=== PATIENT | male | born 1935 | race Caucasian/White ===

== ENCOUNTER 2018-11-15 17:44 | Inpatient (IN) | payer OTHER ==
[~2018-11-15] VITALS: Ht 177.8 cm; Wt 91.5 kg
--- NOTE | 2018-11-15 18:08 | NUR ---
PT TO ROOM FROM [facility]OBBY
[2018-11-15] MEDS ORDERED: ONDANSETRON 2MG/ML, 2ML ONE ×2 (18:37→21:03)
[2018-11-15] MEDS ORDERED: MORPHINE SULFATE 4 MG/ML, 1ML ONE ×2 (18:38→19:23)
[2018-11-15 18:58] LABS: BASOPHILS # (AUTO) 0.04 x10^3/uL (0-0.1); BASOPHILS % (AUTO) 0 % (0-1); EOSINOPHILS # (AUTO) 0.09 x10^3/uL (0-0.4); EOSINOPHILS % (AUTO) 1 % (1-7); LYMPHOCYTES % (AUTO) 16 % (22-44); MD NO; MEAN CORPUSCULAR HEMOGLOBIN 29.6 pg (27.5-34.5); MEAN CORPUSCULAR VOLUME 89.6 fL (81-97); MEAN PLATELET VOLUME 7.2 fL (7.4-10.4); MONOCYTES # (AUTO) 0.29 x10^3/uL (0.2-0.8); MONOCYTES % (AUTO) 4 % (2-9); NEUTROPHILS # (AUTO) 6.66 x10^3/uL (1.8-6.8); NEUTROPHILS % (AUTO) 80 % (42-75); PLATELET COUNT 185 x10^3/uL (130-400); RED BLOOD COUNT 5.19 x10^6/uL (4.38-5.82); RED CELL DISTRIBUTION WIDTH 13.3 % (9.4-14.8)
[2018-11-15] MEDS ORDERED: MORPHINE SULFATE 4 MG/ML, 1ML IVPush ONE ×2 (19:00→20:00)
[2018-11-15] MEDS ORDERED: SODIUM CHLORIDE FLUSH 10ML SYR IVF ONE (19:00)
[2018-11-15] MEDS ORDERED: ONDANSETRON 2MG/ML, 2ML IVPush ONE (19:00)
[2018-11-15 19:11] LABS: ALANINE AMINOTRANSFERASE 26 U/L (12-78); ALBUMIN 4.3 g/dL (3.4-5.0); ANION GAP 8 mmol/L (5-15); CHLORIDE 106 mmol/L (98-107); CREATININE 1.34 mg/dL (0.7-1.3)
[2018-11-15 19:13] LABS: ALKALINE PHOSPHATASE 105 U/L (45-117); BILIRUBIN,TOTAL 0.5 mg/dL (0.2-1.0); TOTAL PROTEIN 7.5 g/dL (6.4-8.2)
[2018-11-15] MEDS ORDERED: EPINEPHRINE 1 MG/ML, 1ML ONE (19:51)
[2018-11-15] MEDS ORDERED: BUPIVACAINE/PF 0.5% ONE (19:51)
[2018-11-15] MEDS ORDERED: FENTANYL PF 250 MCG/5ML ONE (20:19)
[2018-11-15] MEDS ORDERED: ONDANSETRON 2MG/ML, 2ML IV PRN ×2 (20:30→23:45)
[2018-11-15] MEDS ORDERED: PROMETHAZINE 25 MG SUPP PR PRN (20:30)
[2018-11-15] MEDS ORDERED: ONDANSETRON ODT 8 MG PO PRN (20:30)
[2018-11-15] MEDS ORDERED: HYDROmorphone 2 MG/ML, 1ML IVPush PRN ×2 (20:30→21:00)
[2018-11-15] MEDS ORDERED: ALBUTEROL/IPRATROPIUM 2.5MG/0.5MG, 3 ML NPPB PRN (20:30)
[2018-11-15] MEDS ORDERED: PROMETHAZINE 25 MG/ML, 1ML IV PRN (20:30)
[2018-11-15] MEDS ORDERED: ACETAMINOPHEN 325 MG TABLET PO PRN ×2 (20:30→21:00)
[2018-11-15] MEDS ORDERED: hydrALAzine 20 MG/ML, 1ML IV PRN (20:30)
[2018-11-15] MEDS ORDERED: LABETALOL 5MG/ML, 20ML IV PRN (20:30)
[2018-11-15] MEDS ORDERED: OXYcodone 5 MG/5 ML ORAL.SOL UDC PO PRN (20:30)
[2018-11-15] MEDS ORDERED: CEFTRIAXONE PMX 2GM/50ML 50 ML IV SCH (21:00)
[2018-11-15] MEDS ORDERED: BISACODYL 10 MG SUPP PR PRN (21:00)
[2018-11-15] MEDS ORDERED: OXYcodone/APAP 5/325MG TABLET PO PRN (21:00)
[2018-11-15] MEDS ORDERED: LACTATED RINGERS 1,000 ML IV SCH (21:00)
[2018-11-15] MEDS ORDERED: POLYETHYLENE GLYCOL 17 GM PACKET PO PRN (21:00)
[2018-11-15] MEDS ORDERED: ENALAPRILAT 1.25 MG/ML, 2ML IVPush PRN (21:00)
[2018-11-15] MEDS ORDERED: ONDANSETRON 2MG/ML, 2ML IVPush PRN (21:00)
[2018-11-15] MEDS ORDERED: NEOSTIGMINE 1 MG/ML, 10ML ONE (21:03)
[2018-11-15] MEDS ORDERED: PROPOFOL 10 MG/ML, 20ML ONE (21:03)
[2018-11-15] MEDS ORDERED: CEFAZOLIN 1,000 MG ONE (21:03)
[2018-11-15] MEDS ORDERED: SUGAMMADEX 200 MG/2 ML IVPush ONE (21:03)
[2018-11-15] MEDS ORDERED: ROCURONIUM 10MG/ML,5ML ONE (21:03)
[2018-11-15] MEDS ORDERED: SUCCINYLCHOLINE 20 MG/ML, 10ML ONE (21:03)
[2018-11-15] MEDS ORDERED: GLYCOPYRROLATE 0.2MG/1ML, 5ML ONE (21:03)
[2018-11-15] MEDS ORDERED: DEXAMETHASONE 4 MG/ML, 1ML ONE (21:03)
[2018-11-15] MEDS ORDERED: FENTANYL PF 100 MCG/2ML ONE (21:37)
[2018-11-15] MEDS ORDERED: hydrALAzine 20 MG/ML, 1ML ONE (21:37)
[2018-11-15] MEDS ORDERED: OXYcodone 5 MG/5 ML ORAL.SOL UDC ONE (21:37)
[2018-11-15] MEDS ORDERED: ALBUTEROL SULFATE 2.5 MG/3 ML ONE (21:43)
[2018-11-15] MEDS: FENTANYL PF 100 MCG/2ML IV PRN ×2 (21:45→21:50)
[2018-11-15 22:53] VITALS: BP 138/78
[2018-11-15] MEDS ORDERED: SODIUM CHLORIDE FLUSH 10ML SYR IVF SCH (23:30)
[2018-11-15] MEDS ORDERED: HYDROcodone/APAP 5/325 TABLET PO PRN (23:45)
[2018-11-15] MEDS ORDERED: CEFOTETAN PMX 1GM/50ML 50 ML IVPB SCH (23:45)
[2018-11-15] MEDS ORDERED: SODIUM CHLORIDE 0.9% 1,000 ML IV SCH (23:45)
[2018-11-15] MEDS ORDERED: morphine SULFATE 10 MG/ML, 1ML IV PRN (23:45)
[2018-11-16 00:32] VITALS: BP 114/67
[2018-11-16 04:22] VITALS: BP 126/74
[2018-11-16 04:51] LABS: ANION GAP 5 mmol/L (5-15); CALCIUM 8.6 mg/dL (8.5-10.1); CHLORIDE 108 mmol/L (98-107)
[2018-11-16 04:52] LABS: CREATININE 1.33 mg/dL (0.7-1.3)
[2018-11-16 06:19] LABS: BASOPHILS # (AUTO) 0.02 x10^3/uL (0-0.1); BASOPHILS % (AUTO) 0 % (0-1); EOSINOPHILS % (AUTO) 0 % (1-7); LYMPHOCYTES % (AUTO) 8 % (22-44); MD NO; MEAN CORPUSCULAR HEMOGLOBIN 29.4 pg (27.5-34.5); MEAN CORPUSCULAR HGB CONC 32.8 g/dL (33.2-36.2); MEAN CORPUSCULAR VOLUME 89.4 fL (81-97); MEAN PLATELET VOLUME 7.7 fL (7.4-10.4); MONOCYTES # (AUTO) 0.12 x10^3/uL (0.2-0.8); MONOCYTES % (AUTO) 1 % (2-9); NEUTROPHILS # (AUTO) 8.39 x10^3/uL (1.8-6.8); NEUTROPHILS % (AUTO) 91 % (42-75); PLATELET COUNT 166 x10^3/uL (130-400); RED BLOOD COUNT 4.64 x10^6/uL (4.38-5.82); RED CELL DISTRIBUTION WIDTH 13.5 % (9.4-14.8)
[2018-11-16 07:18] VITALS: BP 132/76
[2018-11-16] MEDS ORDERED: SENNA/DOCUSATE TABLET PO SCH (09:00)
[2018-11-16] MEDS ORDERED: DOCU-131 PO (10:28)
[2018-11-16] MEDS ORDERED: ACET650S21 PO (10:28)
== END 2018-11-16 11:55 | disposition home or self-care (01) | DRG 418 ==
LOC: ED 19:44 → EDIP 19:53 → OBSVTOIN 19:53 → 4NOR 22:45 → DCLOUNGE 11-16 11:40
PROVIDERS: ADMIT Family Medicine; ATTEND Family Medicine
PROC: 0FT44ZZ Resection of Gallbladder, Percutaneous Endoscopic Approach (ICD-10-PCS; principal; 2018-11-15 20:15)
DX: K80.12 Calculus of gallbladder with acute and chronic cholecystitis without obstruction (principal); N17.9 Acute kidney failure, unspecified; E78.00 Pure hypercholesterolemia, unspecified; F17.210 Nicotine dependence, cigarettes, uncomplicated; E78.5 Hyperlipidemia, unspecified; Z85.820 Personal history of malignant melanoma of skin
CPT/HCPCS: 36415; 76700; 80048; 80053; 83605; 83690; 85025; 88304; 93005; 96374; 96375; 99285; G0378; J0171; J0690; J1100; J2405; J2704; J2710; J3010; J0330; J2270; J3490

== ENCOUNTER → 2020-03-29 | Outpatient (CLI) | payer MEDICARE ==
[~2020-03-29] MED LIST: ACET650S21 PO; DOCU-131 PO; OMNIPAQUE 350 MG/ML, 150 ML BOTTLE ONE
== END | disposition home or self-care (01) ==
LOC: CFH 12:22
PROVIDERS: ATTEND Physician Assistant Surgical
DX: N28.1 Cyst of kidney, acquired (principal); N26.1 Atrophy of kidney (terminal); R31.21 Asymptomatic microscopic hematuria
CPT/HCPCS: 74178; Q9967

== ENCOUNTER 2020-05-18 11:22 | Emergency (ER) | payer MEDICARE ==
[~2020-05-18] VITALS: Ht 177.8 cm; Wt 90.8 kg
[~2020-05-18 11:22] MED LIST changes: -OMNIPAQUE 350 MG/ML, 150 ML BOTTLE ONE
[2020-05-18] MEDS ORDERED: ATOR-2 PO (11:49)
[2020-05-18] MEDS ORDERED: HYDROcodone/APAP 5/325 TABLET PO STA (13:23)
[2020-05-18] MEDS ORDERED: IBUPROFEN 800 MG TABLET PO ONE (13:30)
[2020-05-18] MEDS ORDERED: IBUPROFEN 800 MG TABLET ONE (13:50)
[2020-05-18] MEDS ORDERED: HYDROcodone/APAP 5/325 TABLET ONE (13:51)
[2020-05-18 13:56] VITALS: BP 153/72
== END 2020-05-18 14:26 | disposition home or self-care (01) ==
LOC: ED 11:39
DX: S52.572A Other intraarticular fracture of lower end of left radius, initial encounter for closed fracture (principal); W18.30XA Fall on same level, unspecified, initial encounter; Y93.89 Activity, other specified; Y92.410 Unspecified street and highway as the place of occurrence of the external cause; Y99.8 Other external cause status
CPT/HCPCS: 29125; 99283

== ENCOUNTER 2020-06-09 09:38 | Day surgery (SDC) | payer MEDICARE ==
[~2020-06-09] VITALS: Ht 177.8 cm; Wt 89.4 kg
[~2020-06-09 09:38] MED LIST changes: +ATOR-2 PO
[2020-06-09] MEDS ORDERED: BUPIVACAINE/PF 0.5% ONE (10:00)
[2020-06-09 10:13] VITALS: BP 160/76
[2020-06-09] MEDS ORDERED: HYDR-3246 PO (10:22)
[2020-06-09] MEDS ORDERED: MULT-718 PO (10:22)
[2020-06-09] MEDS ORDERED: TRAM50TA2 PO (10:22)
[2020-06-09] MEDS ORDERED: LACTATED RINGERS 1,000 ML IV SCH (10:30)
[2020-06-09] MEDS ORDERED: CHLORHEXIDINE 15 ML UDC MM ONE (10:30)
[2020-06-09] MEDS ORDERED: LIDOCAINE-MPF 2% ,5ML ONE (11:03)
[2020-06-09] MEDS ORDERED: PROPOFOL 10 MG/ML, 20ML ONE (11:03)
[2020-06-09] MEDS ORDERED: FENTANYL PF 100 MCG/2ML ONE ×3 (11:03→12:59)
[2020-06-09] MEDS ORDERED: DEXAMETHASONE 4 MG/ML, 5ML ONE (11:08)
[2020-06-09] MEDS ORDERED: CEFAZOLIN 1,000 MG ONE (11:08)
[2020-06-09] MEDS ORDERED: ACETAMINOPHEN 325 MG TABLET PO PRN (11:30)
[2020-06-09] MEDS ORDERED: ONDANSETRON 2MG/ML, 2ML IVPush PRN (11:30)
[2020-06-09] MEDS ORDERED: OXYcodone 5 MG/5 ML ORAL.SOL UDC PO PRN (11:30)
[2020-06-09] MEDS ORDERED: ONDANSETRON 2MG/ML, 2ML ONE (11:56)
[2020-06-09] MEDS ORDERED: ACETAMINOPHEN 650 MG/20.3 ML UDC ONE (12:32)
[2020-06-09] MEDS ORDERED: OXYcodone 5 MG/5 ML ORAL.SOL UDC ONE (12:32)
[2020-06-09] MEDS: FENTANYL PF 100 MCG/2ML IV PRN ×3 (12:33→13:00)
== END 2020-06-09 15:35 | disposition home or self-care (01) ==
LOC: OUT 09:38
PROVIDERS: ATTEND Orthopaedic Surgery
DX: S52.572A Other intraarticular fracture of lower end of left radius, initial encounter for closed fracture (principal); E78.5 Hyperlipidemia, unspecified; Z20.828 Contact with and (suspected) exposure to other viral communicable diseases; Z79.1 Long term (current) use of non-steroidal anti-inflammatories (NSAID); Z79.891 Long term (current) use of opiate analgesic; Z79.899 Other long term (current) drug therapy; Z87.891 Personal history of nicotine dependence; Z88.2 Allergy status to sulfonamides; W18.39XA Other fall on same level, initial encounter; Y93.89 Activity, other specified; Y92.89 Other specified places as the place of occurrence of the external cause; Y99.8 Other external cause status
CPT/HCPCS: 25609; 73100; 93005; C1713; C1762; J0690; J1100; J2405; J2704; J3010; J7120; U0003; 76000